=== PATIENT | female | born 1970 | race Caucasian/White ===

== ENCOUNTER → 2016-05-17 | Outpatient (CLI) | payer OTHER ==
--- NOTE | 2016-05-17 15:22 | MAMMOGRAPHY REPORT ---
UNILATERAL RIGHT DIGITAL DIAGNOSTIC MAMMOGRAM TOMOSYNTHESIS WITH CAD: 05/17/2016 CLINICAL HISTORY: 6 Month Follow-up Right. TECHNIQUE: Breast tomosynthesis in addition to standard 2D mammography was performed. Current study was also evaluated with a Computer Aided Detection (CAD) system. Right CC and MLO 2-D and tomosynt hesis images and spot magnification right cc and ML views were obtained. COMPARISON: Comparison is made to exams dated: 11/15/2015 ultrasound, 11/15/2015 mammogram, 11/07/2015 m ammogram, 11/01/2013 mammogram, 11/17/2014 mammogram, and 11/02/2014 mammogram - [facility]. BREAST COMPOSITION: The tissue of the right breast is heterogeneously dense, which may obscure smal l masses. FINDINGS: Spot magnification views of the right breast again demonstrate regionally distributed brendon t calcifications within the right upper outer quadrant. The calcifications are stable compared to s pot magnification views dated 11/15/2015. On the current exam, some of the calcifications demonstrate layering on the lateral view, suggestive of benign milk of calcium. The calcifications were likely present on the 2014 and 2013 exam although it is difficult to make an accurate comparison due to di fferences in mammographic technique. The calcifications are probably benign and likely represent fi brocystic changes. The remainder of the right breast is stable compared to prior exams, without suspicious masses, calc ifications, or areas of architectural distortion noted. IMPRESSION: ACR-BI-RADS CATEGORY 3: PROBABLY BENIGN Regionally distributed calcifications in the right upper outer quadrant are stable compared to the A ugust 2015 exam, and are probably benign and likely represent fibrocystic changes. Recommend bilate ral diagnostic tomosynthesis mammograms in 6 months, to reevaluate the right breast calcifications a nd for routine mammography of the left breast. The patient has been verbally notified of the results. Approximately 10% of breast cancers are not detected with mammography. A negative mammographic repor t should not delay biopsy if a clinically suggestive mass is present. Ro Bird M.D. /:05/17/2016 13:58:28 Telecommunication Lines Repairer: Jayme JENKINS(Wojciech)(John), [facility] letter sent: Follow Up Recommended 3 BI-RADS Code: ACR-BI-RADS Category 3: Probably Benign
== END | disposition home or self-care (01) ==
LOC: C.MAMM 13:20
PROVIDERS: ATTEND Family Medicine
DX: R92.1 Mammographic calcification found on diagnostic imaging of breast (principal)

== ENCOUNTER → 2016-11-15 | Outpatient (CLI) | payer OTHER ==
--- NOTE | 2016-11-15 13:23 | MAMMOGRAPHY REPORT ---
BILATERAL DIGITAL DIAGNOSTIC MAMMOGRAM TOMOSYNTHESIS WITH CAD AND TARGETED RIGHT ULTRASOUND: 11/15/2016 CLINICAL HISTORY: Short interval follow-up of right breast calcifications, and due for routine mammog nuris of the left breast. The patient also reports intermittent pain involving her right lateral marcela ast for a few months. She denies any palpable lumps. TECHNIQUE: Breast tomosynthesis in addition to standard 2D mammography was performed. Current study was also evaluated with a Computer Aided Detection (CAD) system. Bilateral CC and MLO 2-D and tomosy nthesis images and spot magnification right cc and ML views were obtained. COMPARISON: Comparison is made to exams dated: 05/17/2016 mammogram, 11/15/2015 ultrasound, 11/15/2015 abhishek mogram, 11/07/2015 mammogram, 11/17/2014 ultrasound, and 11/17/2014 mammogram - [facility]. BREAST COMPOSITION: The tissue of both breasts is heterogeneously dense, which may obscure small mas ses. FINDINGS: Spot magnification views of the right breast again demonstrate regionally distributed brendon t calcifications throughout the right upper outer quadrant, measuring at least 8.5 cm x 7 cm on the M L view. The calcifications do not appear significantly changed compared to spot magnification views dated 11/15/2015. Some of the calcifications demonstrate layering on the lateral view, especially the prior lateral view from the 05/17/2016 exam, suggestive of benign milk of calcium/fibrocystic changes. Although the calcifications have not significantly changed for one year, given that they are asymmet clover compared to the left breast and given that not all of the calcifications layer and are therefore not clearly all milk of calcium, stereotactic biopsy is recommended for further evaluation. The remainder of both breasts are stable compared to prior exams, without suspicious masses, calcific ations, or areas of architectural distortion noted. Benign-appearing left breast calcifications are not significantly changed. Targeted ultrasound was performed of the area of pain pointed out by the patient in the right 9:00 br east extending from the lateral aspect towards the nipple. No suspicious masses or other suspicious sonographic abnormalities are evident. IMPRESSION: ACR BI-RADS CATEGORY 4: SUSPICIOUS, TARGETED ULTRASOUND ACR BI-RADS CATEGORY 4: SUSPICIO US 1. Regionally distributed faint calcifications in the right upper outer quadrant are not significantl y changed compared to the November 2015 exam and may represent milk of calcium/fibrocystic changes. Ho wever, the calcifications are indeterminate and stereotactic biopsy is recommended for further evalua tion. 2. No mammographic evidence of malignancy in the left breast. 3. No etiology for intermittent right lateral breast pain evident. Recommend clinical follow-up. A phone call was made to the physician's office to confirm faxed results were received. The patient has been verbally notified of the results. Approximately 10% of breast cancers are not detected with mammography. A negative mammographic report should not delay biopsy if a clinically suggestive mass is present. Ro Bird M.D. ah/:11/15/2016 09:55:02 Supervisor/Port Director: Luann Edge, [facility] letter sent: Abnormal 4/5 BI-RADS Code: ACR BI-RADS Category 4: Suspicious Ultrasound BI-RADS: ACR BI-RADS Category 4: Suspici ous
== END | disposition home or self-care (01) ==
LOC: C.MAMM 07:46
PROVIDERS: ATTEND Family Medicine
DX: R92.1 Mammographic calcification found on diagnostic imaging of breast (principal)

== ENCOUNTER → 2016-11-21 | Outpatient (CLI) | payer OTHER ==
--- NOTE | 2016-11-21 13:26 | Discharge Instructions ---
Discharge Instructions Procedure Procedure Date: Nov 21, 2016. Reason for visit: Right Calcifications. Discharge Discharge Date: Nov 21, 2016. Discharge Diagnosis: status post breast biopsy Instructions Activity Recommendations: Additional Limitations (see below) Return to School/Work: no limitations Recommended Home Diet: No Limitations Provider Instructions: ACTIVITY RECOMMENDATIONS: * No lifting, pushing, pulling or exercising the affected side for three days. RETURN TO SCHOOL/WORK: * You may return to work/school after the procedure, but do not perform any strenuous activities for 24 to 48 hours. MEDICATIONS: * Tylenol (two 325 mg) every four to six hours if needed for mild pain (if not allergic to Tylenol). DIET: * Resume previous diet. SPECIAL CARE INSTRUCTIONS: * Keep biopsy site dry for 24 hours. May shower after 24 hours, but do not soak (bathe) incision. * May remove Tegaderm (plastic patch) tomorrow AFTER showering. * Leave the steri-strips on for one week. Allow the steri-strips to fall off by themselves. If not off after one week, you may remove them. You may place a Bandaid crosswise over the strips, if desired. * Apply ice 10 minutes on and 10 minutes off as needed. * Wear a bra at bedtime to sleep more comfortably for 2-3 days. * Your referring physician should have the results after approximately 5 to 7 business days. * Call for unusual bleeding, fever, drainage, etc or if you have any questions call during normal business hours or after hours call Dr Bird, [phone]. FOLLOW UP VISIT: Follow-up with Referring Physician as scheduled. Sasha Melendez Recommendations: Call your doctor if: * Temperature above 101 degrees * Pain not relieved by pain medicine ordered * There is increased drainage or redness from any incision * You have any unanswered questions or concerns. Your Doctors Instructions noted above were prepared by provider Ro Bird. Patient Signature Section: Patient Instructions Signature Page [place] Patient (or Guardian) Signature/Date: I have read and understand the instructions given to me by my caregivers. Caregiver/RN/Doctor Signature/Date: The above-named patient and/or guardian has received patient instructions on this date. + Original Patient Signature Page (only) stays with chart. Please make copy for patient.
--- NOTE | 2016-11-21 14:02 | MAMMOGRAPHY REPORT ---
STEREOTACTIC GUIDED BIOPSY RIGHT BREAST: 11/21/2016 CLINICAL HISTORY: Indeterminate calcifications in the right upper outer quadrant. PATIENT CONSENT: The procedure, risks, benefits, and alternatives of stereotactic biopsy with clip pl acement were discussed with the patient, and verbal and written consent was obtained. A timeout was performed immediately prior to the procedure. PROCEDURE DESCRIPTION: With stereotactic guidance, aseptic technique, and lidocaine as a local anesth etic (1% lidocaine to anesthetize the skin and 1% lidocaine with epinephrine to anesthetize the deepe r tissues), the area of concern was sampled multiple times with a 9-gauge vacuum-assisted biopsy need le (Suros Eviva). The path of approach was lateral. The specimen radiograph demonstrates calcificat ions to be present in the samples. A metallic marker clip was placed at the biopsy site. This was c onfirmed on postprocedure mammograms. Direct pressure was applied at the biopsy site and hemostasis was readily achieved. The patient tolerated the procedure without complication. She was given wound care instructions. COMPARISON: Comparison is made to exams dated: 11/15/2016 mammogram, 05/17/2016 mammogram, 11/15/2015 mamm ogram, 11/07/2015 mammogram, 11/02/2014 mammogram, and 11/01/2013 mammogram - [facility] er. IMPRESSION: STEREOTACTIC GUIDED BIOPSY Stereotactic biopsy of indeterminate calcifications in the right upper outer quadrant, with clip plac ement. The patient will receive pathology results from her referring provider. Ro Bird M.D. /:11/21/2016 13:35:51 Attending Technologist: Luann Rios RT(R)(M), [facility] Carton Stenciler: Jayme Claros RT(R)(M), [facility]
--- NOTE | 2016-11-21 14:04 | MAMMOGRAPHY REPORT ---
UNILATERAL RIGHT DIGITAL DIAGNOSTIC MAMMOGRAM: 11/21/2016 CLINICAL HISTORY: Status post right breast stereotactic biopsy. TECHNIQUE: Postprocedural right CC and ML views were obtained. COMPARISON: Comparison is made to exams dated: 11/15/2016 mammogram, 05/17/2016 mammogram, 11/15/2015 mamm ogram, 11/07/2015 mammogram, 11/02/2014 mammogram, and 11/01/2013 mammogram - [facility] er. BREAST COMPOSITION: The tissue of the right breast is heterogeneously dense, which may obscure small masses. FINDINGS: A new biopsy marker clip is seen within the right medial breast at approximately 3:00 stat us post stereotactic biopsy of right lateral breast calcifications. There is significant medial migr ation of the biopsy marker clip from the biopsy site, likely due to accordion effect. No significant postbiopsy hematoma is seen. IMPRESSION: POST PROCEDURE IMAGING FOR MARKER PLACEMENT New biopsy marker clip status post right breast stereotactic biopsy. There is medial migration of th e biopsy marker clip as described above. Pathology results are pending. Approximately 10% of breast cancers are not detected with mammography. A negative mammographic report should not delay biopsy if a clinically suggestive mass is present. Ro Bird M.D. /:11/21/2016 13:44:30 Lockstitch Hemmer: Jayme JENKINS(Wojciech)(John), [facility] BI-RADS Code: Post Procedure Imaging For Marker Placement
== END | disposition home or self-care (01) ==
LOC: C.MAMM 12:21
PROVIDERS: ATTEND Family Medicine
DX: R92.0 Mammographic microcalcification found on diagnostic imaging of breast (principal)